=== PATIENT | female | born 1990 | race Caucasian/White ===

== ENCOUNTER 2021-11-15 02:30 | Observation (INO) | payer MEDICAID, SELFPAY ==
[2021-11-15] VITALS (12 sets, daily range): BP systolic 104–123; BP diastolic 65–88; PULSE 51–82; RESP 16–23; TEMP 36.6–37.1; O2SAT 95–100; BMI 33.3; BMI 33.0
--- NOTE | 2021-11-15 02:56 | EDS_ITS ---
HPI History of Present Illness Chief Complaint: Head Injury Informant: patient Onset/Context/Timing Onset: Today Context: Sudden Onset Timing: Continuous Quality: Sharp Location: Left head and neck Worsened by: Nothing Relieved by: Nothing Narrative Narrative: Patient presents with a seizure that occurred tonight. Patient denies any history of seizure disorder. Patient does not take any antiepileptic medications. The patient states she was sitting around a campfire tonight with friends. Patient states she felt lightheaded. Patient got up to go into the camper when she started to feel nauseated. Patient sat down. Patient then felt weak and fell on her left side. Patient then had a generalized tonic-clonic seizure. Patient did lose control of her bowels. Patient does not remember any of the episodes of the seizure. Patient remembers feeling nauseated and then waking up with people around her. Patient states she felt her ears ringing prior to the seizure. Patient states her vision then went black. Patient admits to some pain in the left side of her head and neck. Patient states nothing makes it worse and nothing makes it better. Patient is unsure of her last tetanus. [facility] Medical History Anxiety Depression Left tubal without intrauterine Smoker Substance abuse Allergy/AdvReac Type Severity Reaction Status Date / Time No Known Allergies Allergy Verified 11/15/21 02:33 Family History Other Diabetes Heart disease Surgical History History of Social History Smoking Status: Current every day smoker tobacco type: cigarettes substance use type: marijuana ROS ROS ED Constitutional Constitutional ED: Denies chills or fever(s) Eyes Eyes: Reports change in vision; Denies blurry vision ENT ENT ED: Denies rhinorrhea or sore throat Cardiovascular Cardiovascular: Denies chest pain or palpitations Respiratory/Chest Respiratory/Chest: Denies cough or dyspnea Gastrointestinal Gastrointestinal: Reports nausea; Denies vomiting Genitourinary Genitourinary ED: Denies dysuria or hematuria Musculoskeletal Musculoskeletal: Reports neck pain; Denies back pain Integumentary Denies abscess or rash Neurologic Neurologic: Reports as per HPI, convulsions and headache(s); Denies weakness Allergic/Immunologic Allergic/Immunologic ED: Denies mouth swelling or urticaria EXAM Physical Exam Const Vital Signs: 11/15/21 02:34 11/15/21 02:43 11/15/21 02:45 Temperature 98.1 F Temperature Source Oral Pulse Rate 79 Respiratory Rate 20 H Respiratory Effort Normal Normal Respiratory Depth Normal Respiratory Pattern Normal Normal Blood Pressure 114/71 Blood Pressure Mean 85 Pulse Ox 100 Oxygen Delivery Method Room Air 11/15/21 04:33 Temperature Temperature Source Pulse Rate 73 Respiratory Rate 23 H Respiratory Effort Respiratory Depth Respiratory Pattern Blood Pressure 112/86 H Blood Pressure Mean 94 Pulse Ox 95 Oxygen Delivery Method Room Air Positive well nourished and well developed General Appearance ED: well developed and NAD HEENT Reports moist mucous membranes HEENT Narrative: There is tenderness over the left external ear. There is a 3 cm full-thickness linear laceration of the top of the left external ear. There is minimal gapping of the wound margins. There is minimal bleeding. There is mild tenderness over the left cheek area. There is no bony crepitance or step-off. Eyes PERRL and EOMs intact bilaterally Neck supple and no JVD Neck Narrative: There is tenderness over the left paraspinal muscles. There is no midline tenderness. There is no bony crepitance or step-off. There is good range of motion. General: tenderness Resp normal respiratory effort and clear to auscultation bilaterally Cardio regular rate and regular rhythm GI normal to inspection, nondistended, normoactive bowel sounds and non-tender Palpation: soft Neuro oriented x3, CN's II-XII intact bilaterally and no sensory deficits noted Sensorium / Orientation: alert Motor Exam: strength 5/5 throughout Psych mental status grossly normal MDM MDM MDM Narrative Medical decision making narrative: Patient was given IV fluids. Patient was given tetanus booster. CT scan of the brain was obtained. There is no acute intracranial abnormality. This was interpreted by the radiologist and reviewed by myself. CT scan of the cervical spine was obtained. There are some mild degenerative changes. There is no acute fracture or spondylolisthesis. This was also interpreted by the radiologist and reviewed by myself. CBC shows a mild leukocytosis of 12.1. PT with INR and PTT were within normal limits. Comprehensive metabolic profile showed a potassium of 2.9 and a glucose of 142 but was otherwise within normal limits. Urinalysis does not show any evidence of urinary tract infection or hematuria. Urine tox screen was positive for cannabinoids. Serum alcohol level was negative. LET gel was applied to the left ear. The wound was cleaned and irrigated with copious amounts of normal saline. The wound was closed with Dermabond skin adhesive. Patient tolerated the procedure well. Patient was instructed to avoid bacitracin, Neosporin, or Vaseline-based ointments. Since the patient has never had a history of seizures and this sounds like a generalized tonic-clonic seizure, I recommended admission to the hospital. Patient is agreeable with this. Case was discussed with the hospitalist. He will admit the patient to his service. He recommended consult with teleneurology. This was ordered and is pending. Lab Data Attestation: I reviewed the patient's lab results. Labs: Laboratory Results - last 24 hr 11/15/21 11/15/21 11/15/21 02:36 02:36 02:36 WBC 12.1 H RBC 4.96 Hgb 13.2 Hct 41.0 MCV 82.7 MCH 26.6 L MCHC 32.2 RDW Std Deviation 47.7 H RDW Coeff of Russ 15.8 H Plt Count 231 MPV 11.2 Immature Gran % (Auto) 0.700 Neut % (Auto) 79.1 H Lymph % (Auto) 14.6 L Amador % (Auto) 4.4 Eos % (Auto) 1.0 Baso % (Auto) 0.2 Absolute Neuts (auto) 9.5 H Absolute Lymphs (auto) 1.76 Nucleated RBC % 0 PT 13.3 INR 1.0 APTT 25.7 Sodium 139 Potassium 2.9 L Chloride 106 Carbon Dioxide 26.0 Anion Gap 7 BUN 12 Creatinine 0.95 Estim Creat Clear Calc 78.85 Est GFR (MDRD) Af Amer 87 Est GFR (MDRD) Non-Af 72 BUN/Creatinine Ratio 12.6 Glucose 142 H Calcium 8.6 Total Bilirubin 0.10 L AST 14 L ALT 14 Alkaline Phosphatase 87 Total Protein 6.9 Albumin 3.3 Globulin 3.6 Albumin/Globulin Ratio 0.9 Urine Color Urine Clarity Urine pH Ur Specific [place] Urine Protein Urine Glucose (UA) Urine Ketones Urine Occult Blood Urine Nitrite Urine Bilirubin Urine Urobilinogen Ur Leukocyte Esterase Urine RBC Urine WBC Ur Squamous Epith Cells Urine Bacteria Urine Mucus Urine Opiates Screen Urine Methadone Screen Ur Barbiturates Screen Ur Phencyclidine Scrn Ur Amphetamines Screen MDMA (Ecstasy) Screen U Benzodiazepines Scrn Urine Cocaine Screen U Cannabinoids Screen Ur Drug Screen Comment Ethyl Alcohol 11/15/21 11/15/21 11/15/21 02:36 03:18 03:18 WBC RBC Hgb Hct MCV MCH MCHC RDW Std Deviation RDW Coeff of Russ Plt Count MPV Immature Gran % (Auto) Neut % (Auto) Lymph % (Auto) Amador % (Auto) Eos % (Auto) Baso % (Auto) Absolute Neuts (auto) Absolute Lymphs (auto) Nucleated RBC % PT INR APTT Sodium Potassium Chloride Carbon Dioxide Anion Gap BUN Creatinine Estim Creat Clear Calc Est GFR (MDRD) Af Amer Est GFR (MDRD) Non-Af BUN/Creatinine Ratio Glucose Calcium Total Bilirubin AST ALT Alkaline Phosphatase Total Protein Albumin Globulin Albumin/Globulin Ratio Urine Color Yellow Urine Clarity Clear Urine pH 5.0 Ur Specific [place] 1.025 Urine Protein Negative Urine Glucose (UA) Normal Urine Ketones Negative Urine Occult Blood Negative Urine Nitrite Negative Urine Bilirubin Negative Urine Urobilinogen Normal Ur Leukocyte Esterase Negative Urine RBC 0 SEEN Urine WBC 0 SEEN Ur Squamous Epith Cells 0-5 SEEN Urine Bacteria 1+ Urine Mucus 0 SEEN Urine Opiates Screen NEGATIVE Urine Methadone Screen NEGATIVE Ur Barbiturates Screen NEGATIVE Ur Phencyclidine Scrn NEGATIVE Ur Amphetamines Screen NEGATIVE MDMA (Ecstasy) Screen NEGATIVE U Benzodiazepines Scrn NEGATIVE Urine Cocaine Screen NEGATIVE U Cannabinoids Screen POSITIVE H Ur Drug Screen Comment Ethyl Alcohol 6.0 Radiography Diagnostic Testing: Clinical Impression(s) from Imaging Studies Brain CT 11/15/21 03:05 IMPRESSION: 1. No acute intracranial injuries identified. 2. Laceration involving the pinna of the left ear. Electronically Signed: Mert Jaramillo MD at 3:55 EDT , Cervical Spine CT 11/15/21 03:07 IMPRESSION: 1. No acute injuries identified involving the cervical spine. 2. Degenerative changes. Electronically Signed: Mert Jaramillo MD at 3:56 EDT , Procedures Lacerations Left external ear: Depth: Skin Shape: Linear Prep: Sterile Conditions and Chlorhexadine Laceration repair: Dermabond and Irrigated Discharge Plan Triage Chief Complaint: Head Injury ED Provider: Roger Holcomb Dx/Rx/DC Orders Clinical Impression: New onset seizure, Hypokalemia Primary Care Provider: Care Physician,No Primary Disposition Disposition: Acute Care Hospital [facility]
--- NOTE | 2021-11-15 03:05 | CT_ITS ---
EXAM: CT HEAD WITHOUT INTRAVENOUS CONTRAST CLINICAL INDICATION: Seizure TECHNIQUE: Multiple axial images were obtained of the head without intravenous contrast. This CT exam was performed using one or more of the following dose reduction techniques: automated exposure control, adjustment of the mA and/or kV according to patient size, and/or use of iterative reconstruction technique. This report was created using [employer] report generation technology. COMPARISON: None. FINDINGS: BRAIN AND EXTRA-AXIAL SPACES: Unremarkable. No intra- or extra-axial hemorrhage. No evidence of acute infarct. No intracranial mass or mass effect. There is preservation of the meléndez/white matter interface. Posterior fossa structures are unremarkable. Ventricles are appropriate for age. No hydrocephalus. Basal cisterns are patent. BONES/JOINTS: Unremarkable. No fracture. No discrete lytic or blastic abnormalities. SOFT TISSUES: Laceration involving the pinna of the left ear. SINUSES: Unremarkable as visualized. Clear. MASTOID AIR CELLS: Unremarkable. Clear. ORBITS: Visualized globes, extraocular muscles, optic nerves and retrobulbar fat appear unremarkable. CT/Brain/Head without Contrast IMPRESSION: 1. No acute intracranial injuries identified. 2. Laceration involving the pinna of the left ear. Electronically Signed: Mert Jaramillo MD at 3:55 EDT ,
--- NOTE | 2021-11-15 03:07 | CT_ITS ---
EXAM: CT CERVICAL SPINE WITHOUT INTRAVENOUS CONTRAST CLINICAL INDICATION: Injury/Pain TECHNIQUE: Helically acquired images were obtained of the cervical spine without intravenous contrast. 2D reformatted images were reviewed. This CT exam was performed using one or more of the following dose reduction techniques: automated exposure control, adjustment of the mA and/or kV according to patient size, and/or use of iterative reconstruction technique. This report was created using [employer] report generation technology. COMPARISON: None. FINDINGS: VERTEBRAE: Unremarkable. No fracture. No traumatic subluxation. No discrete lytic or blastic abnormality. Normal alignment. Normal craniocervical junction and cervicothoracic junction. DISCS/SPINAL CANAL/NEURAL FORAMINA: Degenerative changes of the intervertebral discs. No critical stenosis. SOFT TISSUES: Unremarkable. No prevertebral soft tissue swelling. LYMPH NODES: Unremarkable. No cervical adenopathy. LUNG APICES: Unremarkable as visualized. Clear. CT/Spine Cervical without Contras IMPRESSION: 1. No acute injuries identified involving the cervical spine. 2. Degenerative changes. Electronically Signed: Mert Jaramillo MD at 3:56 EDT ,
[2021-11-15 03:26] LABS: Mucous, Urine 0 SEEN /hpf (<or=2+); Red Blood Cells-Urine 0 SEEN /hpf (0-5); White Blood Cells 0 SEEN /hpf (0-5)
[2021-11-15 03:28] LABS: Absolute Lymphocyte Count 1.76 X10^3/uL (0.83-4.51); Absolute Neutrophil Count 9.5 X10^3/uL (2.0-7.7); Basophil# 0.03 X10^3/uL; Basophil% 0.2 % (0-1); Eosinophil# 0.12 X10^3/uL; Hemoglobin 13.2 g/dL (12.0-15.0); Lymphocyte # 1.76 X10^3/ul (0.83-4.51); Lymphocyte % 14.6 % (19-41); Mean Corp Hgb Conc 32.2 g/dL (32-36); Mean Corpuscular Hgb 26.6 pg (27.0-32.0); Mean Corpuscular Volume 82.7 fL (81-99); Mean Platelet Vol. 11.2 fl (6.2-12.0); Monocyte# 0.53 X10^3/uL; Monocyte% 4.4 % (0-10); NRBC Flagged by Analyzer 0 % (0-5); Neutrophil # 9.54 X10^3/uL (2.7-7.7); Neutrophil % 79.1 % (47-70); Platelet Count 231 K/mm3 (150-450); RBC Distribution Width CV 15.8 % (11.6-14.6); RBC Distribution Width SD 47.7 fl (35.1-43.9); Red Blood Count 4.96 M/mm3 (4.2-5.4); White Blood Count 12.1 K/mm3 (4.4-11.0)
[2021-11-15 03:31] LABS: Prothrombin Time (Protime)PT. 13.3 SECONDS (11.7-14.9)
[2021-11-15 03:31] LABS: Color, Urine Yellow (Yellow); Glucose, Dipstick Normal (Normal); Ketone-Dipstick Negative (Negative); Leukocyte Esterase-Dipstick Negative /ul (Negative); Nitrite-Dipstick Negative (Negative); Occult Blood-Urine Negative /ul (Negative); Protein-Dipstick Negative (Negative); Specific Gravity, Urine 1.025 (1.002-1.030); Urine Bilirubin Dipstick Negative (Negative); Urine Clarity Clear (Clear); Urine Urobilinogen Normal (Normal)
[2021-11-15 03:32] LABS: Partial Thromboplast Time 25.7 Seconds (24.1-36.2)
[2021-11-15] MEDS: Lidocaine/Epi/Tetracaine 50 ML 1 APPLIC TOPICAL (03:41)
[2021-11-15] MEDS: Diphth,Pertuss(Acell),Tet Vac 0.5 ML Vial IM (03:41)
[2021-11-15] MEDS: 0.9% Normal Saline 1,000 ML 1000 ML IV (03:41)
[2021-11-15 03:42] LABS: ALB/GLOB Ratio 0.9 RATIO (0.9-2.4); AST(SGOT) 14 U/L (15-37); Alanine Aminotransfer ALT/SGPT 14 U/L (13-56); Albumin, Serum 3.3 g/dL (3.2-5.0); Alkaline Phosphatase 87 U/L (45-117); Anion Gap 7 (5-15); BUN 12 mg/dL (7-18); BUN/Creat Ratio 12.6 RATIO (10-20); Calcium,Total 8.6 mg/dL (8.5-10.1); Chloride 106 mmol/L (98-107); Creatinine, Serum 0.95 mg/dL (0.55-1.02); EST Glomerular Filtration Rate 72 mL/min (>60); Est Glom Filt Rate - Afr Amer 87 mL/min (>60); Estimated Creatinine Clearance 78.85 ml/min; Globulin 3.6 g/dL (2.2-4.2); Glucose 142 mg/dL (74-106); Potassium 2.9 mmol/L (3.5-5.1); Protein, Total 6.9 g/dL (6.4-8.2); Sodium Level 139 mmol/L (136-145)
[2021-11-15 03:44] LABS: Bacteria 1+ /hpf (None Seen); Squamous Epithelial Cells - UA 0-5 SEEN /hpf (5-10)
[2021-11-15 03:45] LABS: Amphetamine Urine VISTA NEGATIVE (<1000 ng/mL); Barbiturate Urine VISTA NEGATIVE (< 200 ng/mL); Benzodiazepine Urine VISTA NEGATIVE (< 200 ng/mL); Cocaine Urine VISTA NEGATIVE (< 300 ng/mL); Ecstacy Urine VISTA NEGATIVE (< 500 ng/mL); Methadone Urine VISTA NEGATIVE (< 300 ng/mL); PCP Urine VISTA NEGATIVE (< 25 ng/mL); THC Urine VISTA POSITIVE (< 50 ng/mL); Vista UDS pH Range 4
[2021-11-15] MEDS: Potassium Chloride Oral Tablet 20 MEQ 40 MEQ PO ×2 (04:25→10:04)
--- NOTE | 2021-11-15 04:39 | TELEMED_ITS ---
[facility] Telemed has confirmed receipt of a request for visit. This document confirms receipt of the order initiating the consult. To find the results of the consultation, please view the patient's reports for the scanned Telemed Consult.
--- NOTE | 2021-11-15 04:49 | HP.PCM.HOS_ITS ---
HPI - General General Date of Admission: 11/15/21 Date of Service: 11/15/21 Chief Complaint: SEIZURES HPI Narrative CEFERINO GRIMES, is a 31 F with a significant medical history of tobacco abuse and marijuana use who presents to the emergency department with a seizure. Reportedly whilst sitting at a fireside patient felt dizzy. She reports her dizziness as hearing muffled sounds all around her and seeing a black environment. Patient and her cousin moved from the fireside into the camp. The patient had tinnitus; presyncope and syncopal episode with generalized convulsions. During the course of the seizure patient hit her head. She developed a skin tear through the pinna of her left ear and for which reason a dermal daniel was applied at the ED. She lost her bowels during the cause of the seizure. She denies any previous history of seizures [facility] Medical History Anxiety Depression Left tubal without intrauterine Smoker Substance abuse Allergy/AdvReac Type Severity Reaction Status Date / Time No Known Allergies Allergy Verified 11/15/21 02:33 Family History Other Diabetes Heart disease Surgical History History of Social History Smoking Status: Current every day smoker tobacco type: cigarettes substance use type: marijuana ROS ROS Narrative Pertinent positives and pertinent negatives as noted in HPI. All other systems were reviewed and are negative. Vital Signs Vital Signs Vital Signs: 11/15/21 02:34 11/15/21 02:43 11/15/21 02:45 Temperature 98.1 F Temperature Source Oral Pulse Rate 79 Respiratory Rate 20 H Respiratory Effort Normal Normal Respiratory Depth Normal Respiratory Pattern Normal Normal Blood Pressure 114/71 Blood Pressure Mean 85 Pulse Ox 100 Oxygen Delivery Method Room Air 11/15/21 04:33 Temperature Temperature Source Pulse Rate 73 Respiratory Rate 23 H Respiratory Effort Respiratory Depth Respiratory Pattern Blood Pressure 112/86 H Blood Pressure Mean 94 Pulse Ox 95 Oxygen Delivery Method Room Air Weight Weight: 93.8 kg Body Mass Index (BMI) 33.3 Physical Exam Narrative Physical exam: General: Well-nourished, well-developed. Head: Normocephalic, atraumatic, no tenderness Eyes: Vision is grossly intact. EOMI ENT, Well approximated skin tear in upper part of pinna of left ear; moist mucous membranes, no rhinorrhea Neck: Nontender, full range of motion, no spinal tenderness. CVS: Regular rate and rhythm. S1-S2 present. No murmur, gallop or rub. Respiratory : clear to auscultation bilaterally, chest wall nontender, no wheezing Abdomen: Soft, nontender, nondistended, normal bowel sounds, no masses : Deferred Back: Nontender, no CVA tenderness, no midline spinal tenderness, deformities, step-offs Extremities: Nontender full range of motion, no trauma Skin: Normal color, no trauma, abrasions Neuro: Alert, oriented, cranial nerves II through XII grossly intact. Psychiatry: Normal mood. Normal affect. Not depressed. Not anxious. Results Lab / Micro Data Result Diagrams: 11/15/21 02:36 11/15/21 02:36 Labs: Laboratory Results - last 24 hr 11/15/21 02:36: WBC 12.1 H, RBC 4.96, Hgb 13.2, Hct 41.0, MCV 82.7, MCH 26.6 L, MCHC 32.2, RDW Std Deviation 47.7 H, RDW Coeff of Russ 15.8 H, Plt Count 231, MPV 11.2, Immature Gran % (Auto) 0.700, Neut % (Auto) 79.1 H, Lymph % (Auto) 14.6 L, Sanders % (Auto) 4.4, Eos % (Auto) 1.0, Baso % (Auto) 0.2, Absolute Neuts (auto) 9.5 H, Absolute Lymphs (auto) 1.76, Nucleated RBC % 0 11/15/21 02:36: PT 13.3, INR 1.0, APTT 25.7 11/15/21 02:36: Sodium 139, Potassium 2.9 L, Chloride 106, Carbon Dioxide 26.0, Anion Gap 7, BUN 12, Creatinine 0.95, Estim Creat Clear Calc 78.85, Est GFR (MDRD) Af Amer 87, Est GFR (MDRD) Non-Af 72, BUN/Creatinine Ratio 12.6, Glucose 142 H, Calcium 8.6, Total Bilirubin 0.10 L, AST 14 L, ALT 14, Alkaline Phosphatase 87, Total Protein 6.9, Albumin 3.3, Globulin 3.6, Albumin/Globulin Ratio 0.9 11/15/21 02:36: Ethyl Alcohol 6.0 11/15/21 03:18: Urine Color Yellow, Urine Clarity Clear, Urine pH 5.0, Ur Specific [place] 1.025, Urine Protein Negative, Urine Glucose (UA) Normal, Urine Ketones Negative, Urine Occult Blood Negative, Urine Nitrite Negative, Urine Bilirubin Negative, Urine Urobilinogen Normal, Ur Leukocyte Esterase Negative, Urine RBC 0 SEEN, Urine WBC 0 SEEN, Ur Squamous Epith Cells 0-5 SEEN, Urine Bacteria 1+, Urine Mucus 0 SEEN 11/15/21 03:18: Urine Opiates Screen NEGATIVE, Urine Methadone Screen NEGATIVE, Ur Barbiturates Screen NEGATIVE, Ur Phencyclidine Scrn NEGATIVE, Ur Amphetamines Screen NEGATIVE, MDMA (Ecstasy) Screen NEGATIVE, U Benzodiazepines Scrn NEGATIVE, Urine Cocaine Screen NEGATIVE, U Cannabinoids Screen POSITIVE H, Ur Drug Screen Comment Radiology Impression Brain CT 11/15/21 03:05 IMPRESSION: 1. No acute intracranial injuries identified. 2. Laceration involving the pinna of the left ear. Electronically Signed: Mert Jaramillo MD at 3:55 EDT Reading Location ID and State: [address] [place] [address] Tel , Service support , Cervical Spine CT 11/15/21 03:07 IMPRESSION: 1. No acute injuries identified involving the cervical spine. 2. Degenerative changes. Electronically Signed: Mert Jaramillo MD at 3:56 EDT Reading Location ID and State: [facility] / [place] Tel , Service support , Assessment & Plan Assessment/Plan (1) New onset seizure: PLAN: New onset seizures Brain CT was visualized and independently interpreted and I agree with radiologist impression of no acute intracranial injuries; laceration from the pinna of the left ear. Review of labs showed white count 12.1 with neutrophilia and lymphopenia likely reactive. Trend CBC. Urinalysis unremarkable. Toxicology positive for cannabinoids. Ethanol level of 6. Await recommendation from [facility] telemetry neurologist. In the meantime as needed Ativan for seizures ordered. Seizure precautions. (2) Hypokalemia: PLAN: BMP reviewed showed potassium level of 2.9 Received potassium supplementation at the ED. Additional potassium ordered. (3) Tobacco abuse: PLAN: Counselled. Decline nicotine patch. (4) Marijuana abuse: PLAN: Counseled
[2021-11-15] MEDS: HYDROcodone Bitartrate/Apap 5/325 Tablet PO (05:42)
--- NOTE | 2021-11-15 06:48 | NURSING ---
PCU\ OBS NEW ONSET SEIZURE AGYEPONG
--- NOTE | 2021-11-15 07:41 | EKG12_ITS ---
Test Reason : Blood Pressure : / mmHG Vent. Rate : 053 BPM Atrial Rate : 053 BPM P-R Int : 146 ms QRS Dur : 094 ms QT Int : 452 ms P-R-T Axes : 023 054 042 degrees QTc Int : 424 ms Sinus bradycardia Otherwise normal ECG No previous ECGs available Confirmed by JOSE ALEJANDRO LÓPEZ, NESS ([id number]), assistant production editor JIMBO PEÑA ([id number]) on 11/17/2021 9:06:07 AM Referred By: Confirmed By:NESS BLOUNT MD
--- NOTE | 2021-11-15 12:39 | PN.HOSP_ITS ---
Documented by User: ABDIRIZAK Richard 11/15/21 12:41 Subjective Subjective Patient seen and examined. Patient sitting in bed getting hooked up for EEG. Objective Data Objective Data Vital Signs: Vital Signs Temp Pulse Resp BP Pulse Ox O2 Del Method 97.9 F 51 L 16 112/74 98 Room Air 11/15/21 07:40 11/15/21 07:40 11/15/21 07:40 11/15/21 07:40 11/15/21 07:40 11/15/21 07:40 Oxygen Delivery Method Room Air Weight: 205 lb 0.478 oz Body Mass Index (BMI) 33.0 Intake & Output: Intake and Output for Last 24 Hours 11/13/21 11/14/21 11/15/21 23:59 23:59 23:59 Intake Total 1000 / 1000 Balance 1000 / 1000 Lab / Micro Data Result Diagrams: 11/15/21 02:36 11/15/21 02:36 Labs: Laboratory Results - last 24 hr 11/15/21 02:36: WBC 12.1 H, RBC 4.96, Hgb 13.2, Hct 41.0, MCV 82.7, MCH 26.6 L, MCHC 32.2, RDW Std Deviation 47.7 H, RDW Coeff of Russ 15.8 H, Plt Count 231, MPV 11.2, Immature Gran % (Auto) 0.700, Neut % (Auto) 79.1 H, Lymph % (Auto) 14.6 L, [place] % (Auto) 4.4, Eos % (Auto) 1.0, Baso % (Auto) 0.2, Absolute Neuts (auto) 9.5 H, Absolute Lymphs (auto) 1.76, Nucleated RBC % 0 11/15/21 02:36: PT 13.3, INR 1.0, APTT 25.7 11/15/21 02:36: Sodium 139, Potassium 2.9 L, Chloride 106, Carbon Dioxide 26.0, Anion Gap 7, BUN 12, Creatinine 0.95, Estim Creat Clear Calc 78.85, Est GFR (MDRD) Af Amer 87, Est GFR (MDRD) Non-Af 72, BUN/Creatinine Ratio 12.6, Glucose 142 H, Calcium 8.6, Total Bilirubin 0.10 L, AST 14 L, ALT 14, Alkaline Phosphatase 87, Total Protein 6.9, Albumin 3.3, Globulin 3.6, Albumin/Globulin R atio 0.9 11/15/21 02:36: Ethyl Alcohol 6.0 11/15/21 03:18: Urine Color Yellow, Urine Clarity Clear, Urine pH 5.0, Ur Specific Pavilion 1.025, Urine Protein Negative, Urine Glucose (UA) Normal, Urine Ketones Negative, Urine Occult Blood Negative, Urine Nitrite Negative, Urine Bilirubin Negative, Urine Urobilinogen Normal, Ur Leukocyte Esterase Negative, Urine RBC 0 SEEN, Urine WBC 0 SEEN, Ur Squamous Epith Cells 0-5 SEEN, Urine Bacteria 1+, Urine Mucus 0 SEEN 11/15/21 03:18: Urine Opiates Screen NEGATIVE, Urine Methadone Screen NEGATIVE, Ur Barbiturates Screen NEGATIVE, Ur Phencyclidine Scrn NEGATIVE, Ur Amphetamines Screen NEGATIVE, MDMA (Ecstasy) Screen NEGATIVE, U Benzodiazepines Scrn NEGATIVE, Urine Cocaine Screen NEGATIVE, U Cannabinoids Screen POSITIVE H, Ur Drug Screen Comment Radiography Diagnostic Testing: Radiology Impression Brain CT 11/15/21 03:05 IMPRESSION: 1. No acute intracranial injuries identified. 2. Laceration involving the pinna of the left ear. Electronically Signed: Mert Jaramillo MD at 3:55 EDT Reading Location ID and State: [facility] / [place] Tel , Service support , Cervical Spine CT 11/15/21 03:07 IMPRESSION: 1. No acute injuries identified involving the cervical spine. 2. Degenerative changes. Electronically Signed: Mert Jaramillo MD at 3:56 EDT Reading Location ID and State: [facility] / [place] Tel , Service support , Physical Exam Const alert, oriented x3 and no apparent distress HEENT head/scalp atraumatic and moist oral mucous membranes Head and Scalp: normocephalic Eyes conjunctivae normal and no scleral icterus Neck supple Resp normal respiratory effort and clear to auscultation bilaterally Cardio regular rate, regular rhythm, S1 normal heart sound and S2 normal heart sound GI normal to inspection, nondistended, normoactive bowel sounds, soft to palpation and non-tender Extremity normal to inspection, full ROM and no clubbing, cyanosis or edema Neuro oriented x3, moves all extremities, no focal motor deficits and no sensory deficits noted Psych affect normal Assessment & Plan Assessment/Plan (1) New onset seizure: PLAN: Plan Patient was admitted early this morning for possible seizure versus syncope. Patient was seen by [facility] who also evaluated patient's EEG. Requested MRI which is ordered for tomorrow morning. SOC also recommended driving restrictions until patient is able to follow-up with outpatient neurology. Documented by User: Dr. Roger Morfin DO 11/15/21 13:48 Subjective Subjective Patient seen and examined. Patient sitting in bed getting hooked up for EEG. Objective Data Lab / Micro Data Result Diagrams: 11/15/21 02:36 11/15/21 02:36 Assessment & Plan Assessment/Plan (1) New onset seizure: PLAN: Plan Patient was admitted early this morning for possible seizure versus syncope. Patient was seen by [facility] who also evaluated patient's EEG. Requested MRI which is ordered for tomorrow morning. SOC also recommended driving restrictions until patient is able to follow-up with outpatient neurology. Attending note Patient seen and examined independently. Data and vitals reviewed. I agree with the above note by the nurse practitioner. Patient states that she had a long day on the water, got sunburn which, states that she was eating and drinking well during the day. Did have a couple shots of alcohol few hours before the event. Patient was not feeling well throughout the day and had her events. Patient has no prior history of seizures. Patient has had a history of syncope or near syncope while she was . Patient have electrodes from EEG being placed. Patient has laceration on her left anterior helix. Is well approximated. On patient is no acute distress and afebrile. Alert and oriented. Assessment and plan 1. Syncope Patient did evacuate her bowels and did have a protracted case of unconsciousness after the event. I am more convinced that this is more of a syncopal event and less likely seizure given her never having had seizures before. Patient may have had a syncopal event and then hit her head and then just had a protracted case of unconsciousness from a concussion rather than the seizure. Patient was evaluated by [facility] teleneurology who informed me on the phone that they feel this sounds like syncope but are still considering this is a first event of a seizure. Recommended follow-up on the EEG and get an MRI of the brain. She recommended driving restrictions until 6 months seizure-free or until cleared by neurology. Additionally not recommending any antiepileptic drugs at this time unless EEG is clearly positive for seizures. I will not override the neurologist recommendations 2. Left ear laceration approximated with the DuoDERM. If becomes dehisced, patient will need to see ENT or plastic surgery. Charges/Coding Procedures Hospitalists Procedures: Other Procedure - See Report (Nonbillable rounding as patient was admitted after midnight.)
[2021-11-15] MEDS: Acetaminophen 325 MG Tablet 650 MG PO (18:53)
[2021-11-15] MEDS: 0.9% Saline Lock 10 ML Syringe IV (20:20)
[2021-11-16] VITALS (7 sets, daily range): BP systolic 110–141; BP diastolic 69–97; PULSE 50–67; RESP 18; TEMP 36.4–36.7; O2SAT 98–99
[2021-11-16 06:14] LABS: Absolute Lymphocyte Count 2.56 X10^3/uL (0.83-4.51); Absolute Neutrophil Count 4.1 X10^3/uL (2.0-7.7); Basophil# 0.03 X10^3/uL; Basophil% 0.4 % (0-1); Eosinophil# 0.17 X10^3/uL; Eosinophils% 2.3 % (0-5); Hemoglobin 12.4 g/dL (12.0-15.0); Lymphocyte # 2.56 X10^3/ul (0.83-4.51); Lymphocyte % 34.4 % (19-41); Mean Corp Hgb Conc 33.5 g/dL (32-36); Mean Corpuscular Hgb 27.2 pg (27.0-32.0); Mean Corpuscular Volume 81.1 fL (81-99); Mean Platelet Vol. 11.7 fl (6.2-12.0); Monocyte# 0.51 X10^3/uL; Monocyte% 6.9 % (0-10); NRBC Flagged by Analyzer 0 % (0-5); Neutrophil # 4.14 X10^3/uL (2.7-7.7); Neutrophil % 55.6 % (47-70); Platelet Count 198 K/mm3 (150-450); RBC Distribution Width CV 15.8 % (11.6-14.6); Red Blood Count 4.56 M/mm3 (4.2-5.4); White Blood Count 7.4 K/mm3 (4.4-11.0)
[2021-11-16 06:49] LABS: Anion Gap 6 (5-15); BUN 9 mg/dL (7-18); BUN/Creat Ratio 12.7 RATIO (10-20); Calcium,Total 8.6 mg/dL (8.5-10.1); Chloride 109 mmol/L (98-107); Creatinine, Serum 0.71 mg/dL (0.55-1.02); EST Glomerular Filtration Rate 101 mL/min (>60); Est Glom Filt Rate - Afr Amer 122 mL/min (>60); Glucose 99 mg/dL (74-106); Sodium Level 138 mmol/L (136-145)
--- NOTE | 2021-11-16 09:00 | MRI_ITS ---
EXAM: MR HEAD WITHOUT INTRAVENOUS CONTRAST CLINICAL INDICATION: Seizures TECHNIQUE: Multiplanar and multisequence MR images of the brain were obtained without intravenous contrast. This report was created using [employer] report generation technology. COMPARISON: None. FINDINGS: BRAIN AND EXTRA-AXIAL SPACES: Unremarkable. No intra- or extra-axial hemorrhage. No evidence of acute infarct. No intracranial mass or mass effect. There is preservation of the meléndez/white matter interface. The limbic lobes are normal and symmetrical. Posterior fossa structures are unremarkable. Ventricles are appropriate for age. No hydrocephalus. Basal cisterns are patent. SELLA: Unremarkable. Normal sella turcica, pituitary gland, infundibular stalk, optic chiasm and hypothalamus. AUDITORY SYSTEM: Unremarkable. The internal auditory canals are patent. BONES/JOINTS: Unremarkable. No discrete lytic or blastic abnormalities. SINUSES: Unremarkable as visualized. Clear. MASTOID AIR CELLS: Unremarkable as visualized. Clear. ORBITS: Unremarkable as visualized. Both globes, extraocular muscles, optic nerves and retrobulbar fat appear unremarkable. VASCULATURE: Unremarkable as visualized. Normal flow voids in the major intracranial circulation. MRI/Brain without Contrast IMPRESSION: Normal MRI brain without intravenous contrast. Electronically Signed: Misha Brownlee MD at 11:21 EDT ,
[2021-11-16] MEDS: Acetaminophen 325 MG Tablet 650 MG PO (09:16)
--- NOTE | 2021-11-16 15:40 | DCINST_ITS ---
Discharge Instructions Diet Discharge Diet: No restrictions Activity Discharge Activity: Return to Normal Activity Dressing / Incision Call your doctor if you observe: Dizziness and Fainting spells Follow Up Care Test Results: Test results from this visit will be discussed in further detail at your follow- up appointment, if applicable. Discharge Plan Admission Admit Date/Time: 11/15/21 05:26 Primary Reason for Your Visit: Syncopal episode Attending Provider: Altagracia Oseguera Primary Care Provider: Care Physician,No Primary Consulting Providers: Flo Richardson ; Roger Morfin Discharge Orders/Prescriptions Referrals / Follow Up: Huan Alonso MD [NON-STAFF] - Within 1 Month Care Physician,No Primary [Primary Care Provider] - Disposition Disposition (needs filled in before D/C Order can be placed): Home, Self Care
--- NOTE | 2021-11-16 15:43 | DS.PCM_ITS ---
Documented by User: ABDIRIZAK Richard 11/16/21 15:45 Providers Date of Admission: 11/15/21 Date of Discharge: 11/16/21 Primary Care Physician: No Primary Care Phys Reason For Visit: NEW ONSET SEIZURES Diagnosis Discharge Diagnosis (1) New onset seizure: Status: Acute Code(s): R56.9 - Unspecified convulsions Plan Patient was admitted early this morning for possible seizure versus syncope. Patient was seen by [facility] who also evaluated patient's EEG. Requested MRI which is ordered for tomorrow morning. SOC also recommended driving restrictions until patient is able to follow-up with outpatient neurology. Hospital Course Operations None Procedures None Summary of Care Provided Minutes Spent on Discharge: 35 Hospital Course: Patient is a 31-year-old female who presented after syncopal episode with concerns of seizure after hitting her head during syncopal episode. Patient underwent brain CT, cervical spine CT, brain MRI and EEG which were all negative for acute findings. [facility] teleneurology was consulted initially when patient was admitted and for follow-up for review of MRI and EEG. SOC recommends that patient be discharged home with no medications and is very unlikely that patient had a seizure with negative findings on all imaging. Recommendations for follow-up outpatient with neurology given. Patient given referral to Dr. Alonso for follow-up. Findings and recommendations discussed with patient by Dr. Oseguera. Physical Exam Const alert, oriented x3 and no apparent distress HEENT head/scalp atraumatic and moist oral mucous membranes Eyes conjunctivae normal and no scleral icterus Neck supple Resp normal respiratory effort and clear to auscultation bilaterally Cardio regular rate, regular rhythm, S1 normal heart sound and S2 normal heart sound GI normal to inspection, nondistended, normoactive bowel sounds, soft to palpation and non-tender Extremity normal to inspection, full ROM and no clubbing, cyanosis or edema Neuro oriented x3, moves all extremities, no focal motor deficits and no sensory deficits noted Psych affect normal Weight / BMI Weight Weight: 205 lb 0.478 oz Body Mass Index (BMI) 33.0 ABG / Lab / Microbiology Data Result Diagrams: 11/16/21 05:35 11/16/21 05:35 Laboratory: Laboratory Results - last 24 hr 11/16/21 05:35: WBC 7.4, RBC 4.56, Hgb 12.4, Hct 37.0, MCV 81.1, MCH 27.2, MCHC 33.5, RDW Std Deviation 47.0 H, RDW Coeff of Russ 15.8 H, Plt Count 198, MPV 11.7, Immature Gran % (Auto) 0.400, Neut % (Auto) 55.6, Lymph % (Auto) 34.4, [place] % (Auto) 6.9, Eos % (Auto) 2.3, Baso % (Auto) 0.4, Absolute Neuts (auto) 4.1, Absolute Lymphs (auto) 2.56, Nucleated RBC % 0 11/16/21 05:35: Sodium 138, Potassium 4.0, Chloride 109 H, Carbon Dioxide 23.0, Anion Gap 6, BUN 9, Creatinine 0.71, Estim Creat Clear Calc 105.50, Est GFR (MDRD) Af Amer 122, Est GFR (MDRD) Non-Af 101, BUN/Creatinine Ratio 12.7, Glucose 99, Calcium 8.6 Radiography Diagnostic Testing: Radiology Impression Brain MRI 11/16/21 09:00 IMPRESSION: Normal MRI brain without intravenous contrast. Electronically Signed: Misha Brownlee MD at 11:21 EDT , D/C Instructions Discharge Diet: No restrictions Call your doctor if you observe: Dizziness and Fainting spells Meaningful Use Info Meaningful Use Diagnoses (Choose all that apply): None applicable Discharge Plan Admission Admit Date/Time: 11/15/21 05:26 Primary Reason for Your Visit: Syncopal episode Attending Provider: Altagracia Oseguera Primary Care Provider: Care Physician,No Primary Consulting Providers: Flo Richardson ; Roger Morfin Discharge Orders/Prescriptions Referrals / Follow Up: Huan Alonso MD [NON-STAFF] - Within 1 Month Care Physician,No Primary [Primary Care Provider] - Disposition Disposition (needs filled in before D/C Order can be placed): Home, Self Care Documented by User: Dr. Altagracia Oseguera DO 11/16/21 16:21 Providers Date of Admission: 11/15/21 Reason For Visit: NEW ONSET SEIZURES Diagnosis Discharge Diagnosis (1) New onset seizure: Status: Acute Code(s): R56.9 - Unspecified convulsions Hospital Course Summary of Care Provided Hospital Course: This patient was seen in conjunction with Cecily Sharma NP. The following represents my independent history and physical examination. Please see below for addendum the above. Ms. Hunt is a 31-year-old female who presented to the emergency department on 11/15/2021 for a concern of seizures. The patient was apparently sitting in a fire side and felt hot and flushed and then everything got dark around her. Sounds were muffled. She states she had an episode like this previously when she was but nothing since. She was with family at the time and they moved her from the fire side to the camping area. The patient hit her head after she passed out and there was concern that she developed seizures that she had loss of bowel and bladder during the episode. She [place] evaluated [place] [facility] yesterday at which time they recommended a urine tox screen, an MRI and an EEG. An EEG was done early this morning and was normal during waking and drowsiness with no identified focal or epileptiform features. Toxicology screen was only positive for cannabinoids which she admits to using using. The MRI of her brain was negative. She was reevaluated by [facility] telene[facility]rology and they felt there is insufficient evidence to start antiepileptic drugs at this point but recommended outpatient neurology follow-up. She was referred to Dr. Alonso upon discharge but did request that possibly she follow-up closer to home which I told her would be fine as long as she is sure the physician has a specialty in epilepsy. She reported she would do some research and follow-up accordingly. She was discharged home in stable condition with no further events on 11/16/2021. Discharge diagnoses: Syncope Possible seizure Left ear laceration Hypokalemia-resolved Tobacco abuse Marijuana use Physical Exam Const alert, oriented x3, no apparent distress and well nourished Constitutional Narrative: Lower middle-aged, white, female sitting up in bed, watching television appears comfortable nontoxic, no current issues General Appearance: cooperative and well developed HEENT normocephalic and moist oral mucous membranes HEENT Narrative: Abrasions on the left lateral aspect of her forehead, Mallampati is 2, no thrush Eyes PERRL and EOMs intact bilaterally Eyes Narrative: Conjunctiva normal, no scleral icterus Neck no lymphadenopathy, supple, no JVD and thyroid normal General: trachea midline Resp normal respiratory effort, normal air movement and clear to auscultation bilaterally Auscultation: Negative for rales, rhonchi, wheezes or diminished lung sounds Cardio regular rate, regular rhythm, S1 normal heart sound, S2 normal heart sound, no murmurs, no rub, no gallops and peripheral pulses 2+ throughout GI normal to inspection, nondistended, normoactive bowel sounds, soft to palpation, non-tender and non-distended Extremity no clubbing, cyanosis or edema Skin no wounds, skin turgor normal, no jaundice, no petechiae and no mottling Skin Narrative: Abrasion on left lateral forehead as documented above Neuro CN's II-XII intact bilaterally Speech: speech normal Gait (Neuro): normal gait Motor Exam: strength 5/5 throughout Psych affect normal Psych Narrative: Eye contact is good, patient is appropriately interactive Appearance: appropriate ABG / Lab / Microbiology Data Result Diagrams: 11/16/21 05:35 11/16/21 05:35 Discharge Plan Admission Admit Date/Time: 11/15/21 05:26 Primary Reason for Your Visit: Syncopal episode Attending Provider: Altagracia Oseguera Primary Care Provider: Care Physician,No Primary Consulting Providers: Flo Richardson ; Roger Morfin Discharge Orders/Prescriptions Referrals / Follow Up: Huan Alonso MD [NON-STAFF] - Within 1 Month Care Physician,No Primary [Primary Care Provider] - Disposition Disposition (needs filled in before D/C Order can be placed): Home, Self Care Charges/Coding Visit Charges Inpatient E&M: 22770 Disch Hosp
== END 2021-11-16 15:43 | disposition home or self-care (01) ==
LOC: ED 03:08 → PCU 05:49
PROVIDERS: Admitting Provider Hospitalist; Emergency Provider Emergency Medicine; Visit Provider Internal Medicine
DX: R56.9 Unspecified convulsions (principal); E87.6 Hypokalemia; F12.90 Cannabis use, unspecified, uncomplicated; F17.210 Nicotine dependence, cigarettes, uncomplicated; S01.312A Laceration without foreign body of left ear, initial encounter; H93.19 Tinnitus, unspecified ear; R11.0 Nausea; Y93.89 Activity, other specified; Y99.9 Unspecified external cause status; W19.XXXA Unspecified fall, initial encounter; Y92.833 Campsite as the place of occurrence of the external cause; Z23 Encounter for immunization; R00.1 Bradycardia, unspecified
CPT/HCPCS: 12013; 36415; 70450; 70551; 72125; 80048; 80053; 80307; 81001; 82077; 85025; 85610; 85730; 90715; 93005; 95819; 96360; 96361; 99218; 99285; 99406; J7030; A4216; G0378